=== PATIENT | male | born 1970 | race Asian ===

== ENCOUNTER 2024-06-12 16:37 | Inpatient (IN) | payer MEDICARE, OTHER ==
[~2024-06-12] VITALS: Ht 180.3 cm; Wt 73.5 kg
[2024-06-12 16:59] LABS: BASOPHILS % (AUTO) 0.3 % (0.0-2.0); EOSINOPHILS # (AUTO) 0.1 K/uL (0.0-0.7); EOSINOPHILS % (AUTO) 1.9 % (0.0-6.0); HEMATOCRIT 41 % (39-51); HEMOGLOBIN 13.5 g/dL (13.5-17.5); LYMPHOCYTES % (AUTO) 34.7 % (20.0-44.0); MEAN CORPUSCULAR HEMOGLOBIN 29 PG (26.0-33.0); MEAN CORPUSCULAR HGB CONC 33 g/dl (31.0-36.0); MEAN CORPUSCULAR VOLUME 88 fL (80-96); MONOCYTES # (AUTO) 0.7 K/uL (0.1-1.30); MONOCYTES % (AUTO) 12.8 % (2.0-12.0); NEUTROPHILS # (AUTO) 2.9 K/uL (1.8-8.9); NEUTROPHILS % (AUTO) 50.3 % (43.0-81.0); PLATELET COUNT (AUTO) 247 K/uL (150-450); RED BLOOD CELL COUNT(AUTO) 4.72 MIL/uL (4.5-6.0); RED CELL DISTRIBUTION WIDTH 16.5 % (11.5-15.0); WHITE BLOOD COUNT (AUTO) 5.8 K/uL (4.3-11.0)
[2024-06-12] MEDS: IV NS 0.9% 1,000 ML BAG IV ONE (17:02)
[2024-06-12 17:10] LABS: CALCIUM, SERUM 8.9 mg/dL (8.5-10.1); CARBON DIOXIDE 21 mmol/L (21-32); CHLORIDE 99 mmol/L (98-107); CREATININE 1.2 mg/dL (0.6-1.3); GLUCOSE 90 mg/dL (74-106); POTASSIUM 4.3 mmol/L (3.5-5.1); SODIUM SERUM 136 mmol/L (136-145); UREA NITROGEN, BLOOD 8 mg/dL (7-18)
[2024-06-12 17:18] LABS: ALANINE AMINOTRANSFERASE 23 U/L (12-78); ALCOHOL, BLOOD < 3 mg/dL (0-10); ALKALINE PHOSPHATASE 52 U/L (46-116); ASPARTATE AMINOTRANSFERASE 22 U/L (15-37); BILIRUBIN,DIRECT 0.2 mg/dL (0.0-0.2); BILIRUBIN,TOTAL 0.5 mg/dL (0.2-1.0); TOTAL PROTEIN, SERUM 7.3 g/dL (6.4-8.2)
[2024-06-12] MEDS ORDERED: PANT40TA49 PO (17:55)
[2024-06-12] MEDS ORDERED: EVOL140P3 PO (17:55)
[2024-06-12] MEDS ORDERED: KRIL1CAP18 PO (17:55)
[2024-06-12] MEDS ORDERED: CLOP75TA15 PO (17:55)
[2024-06-12] MEDS ORDERED: FERR325T24 PO (17:55)
[2024-06-12] MEDS ORDERED: CARV6.252 PO (17:55)
[2024-06-12] MEDS ORDERED: DIVA250T4 PO (17:55)
[2024-06-12] MEDS ORDERED: EZET10TA32 PO (17:55)
[2024-06-12] MEDS ORDERED: ATOR80TA PO (17:55)
[2024-06-12] MEDS ORDERED: PALI234D IM (17:55)
[2024-06-12] MEDS ORDERED: TRAZ-252 PO (17:55)
[2024-06-12] MEDS ORDERED: CHOL500062 PO (17:55)
[2024-06-12] MEDS ORDERED: ACETAMINOPHEN 325 MG TABLET PO PRN (18:00)
[2024-06-12] MEDS ORDERED: ONDANSETRON HCL/PF 4 MG/2 ML VIAL IVP PRN (18:00)
[2024-06-12] MEDS ORDERED: MORPHINE SULFATE INJ 2 MG/ML DISP.SYRIN IV PRN (18:00)
[2024-06-12] MEDS ORDERED: TRAZODONE 50 MG TABLET PO PRN (18:00)
[2024-06-12] MEDS ORDERED: hydrALAZINE HCL IV 20 MG VIAL IV PRN (18:00)
[2024-06-12 18:46] LABS: CALCIUM, SERUM 8.9 mg/dL (8.5-10.1)
[2024-06-12] MEDS ORDERED: DIVALPROEX SODIUM 250 MG TABLET.DR PO SCH (21:00)
[2024-06-12] MEDS ORDERED: DIVALPROEX SODIUM 500 MG TABLET.DR PO ONE (22:48)
[2024-06-12] MEDS ORDERED: HEPARIN SODIUM, PORCINE 5000 UNITS/1 ML VIAL ONE (22:48)
[2024-06-12] MEDS ORDERED: ATORVASTATIN 40 MG TABLET ONE (22:49)
[2024-06-12] MEDS ORDERED: CARVEDILOL 6.25 MG TABLET ONE (22:49)
[2024-06-12] MEDS: CARVEDILOL 6.25 MG TABLET PO SCH (22:56)
[2024-06-12] MEDS: DIVALPROEX SODIUM 250 MG TABLET.DR PO SCH (22:57)
[2024-06-12] MEDS: HEPARIN SODIUM, PORCINE 5000 UNITS/1 ML VIAL SQ SCH (22:57)
[2024-06-12] MEDS: ATORVASTATIN 40 MG TABLET PO SCH (22:57)
[2024-06-13 00:50] VITALS: BP 115/65; TEMP 98.1; O2SAT 98
[2024-06-13 04:00] VITALS: BP 110/65; TEMP 98.5; O2SAT 99
[2024-06-13 07:57] LABS: BASOPHILS % (AUTO) 0.4 % (0.0-2.0); EOSINOPHILS # (AUTO) 0.1 K/uL (0.0-0.7); HEMATOCRIT 39 % (39-51); HEMOGLOBIN 13.2 g/dL (13.5-17.5); LYMPHOCYTES # (AUTO) 2.1 K/uL (0.8-4.8); LYMPHOCYTES % (AUTO) 41.5 % (20.0-44.0); MEAN CORPUSCULAR HEMOGLOBIN 29 PG (26.0-33.0); MEAN CORPUSCULAR HGB CONC 34 g/dl (31.0-36.0); MEAN CORPUSCULAR VOLUME 88 fL (80-96); MONOCYTES # (AUTO) 0.6 K/uL (0.1-1.30); NEUTROPHILS # (AUTO) 2.3 K/uL (1.8-8.9); NEUTROPHILS % (AUTO) 45.1 % (43.0-81.0); PLATELET COUNT (AUTO) 253 K/uL (150-450); RED BLOOD CELL COUNT(AUTO) 4.48 MIL/uL (4.5-6.0); RED CELL DISTRIBUTION WIDTH 17.2 % (11.5-15.0); WHITE BLOOD COUNT (AUTO) 5.1 K/uL (4.3-11.0)
[2024-06-13 08:00] VITALS: BP 98/57; TEMP 97.7; O2SAT 98
[2024-06-13 08:08] LABS: CALCIUM, SERUM 8.6 mg/dL (8.5-10.1)
[2024-06-13 08:51] LABS: ALBUMIN 3.2 g/dL (3.4-5.0); BILIRUBIN,TOTAL 0.6 mg/dL (0.2-1.0); CALCIUM, SERUM 8.6 mg/dL (8.5-10.1); CREATININE 0.9 mg/dL (0.6-1.3); MAGNESIUM 2.4 mg/dL (1.8-2.4); PHOSPHORUS 3.8 mg/dL (2.5-4.9); POTASSIUM 3.9 mmol/L (3.5-5.1); TOTAL PROTEIN, SERUM 6.3 g/dL (6.4-8.2)
[2024-06-13] MEDS: PANTOPRAZOLE 40 MG TABLET.DR PO SCH (08:56)
[2024-06-13] MEDS: CLOPIDOGREL BISULFATE 75 MG TABLET PO SCH (09:12)
[2024-06-13] MEDS: FERROUS SULFATE (325 MG) 325 MG/TAB TABLET PO SCH (09:12)
[2024-06-13] MEDS: EZETIMIBE 10 MG TABLET PO SCH (09:13)
[2024-06-13 12:00] VITALS: BP 98/57; TEMP 97.7; O2SAT 98
[2024-06-13 13:09] LABS: THYROID STIMULATING HORMONE 0.56 uIU/mL (0.358-3.74)
[2024-06-13] MEDS ORDERED: DIVA500T2 PO (14:28)
[2024-06-15 11:08] LABS: FOLIC ACID 10.5 ng/mL (>3.0)
[2024-07-12] MEDS ORDERED: PALIPERIDONE PALMITATE 234 MG/1.5 ML SYRINGE IM SCH (09:00)
== END 2024-06-13 15:20 | disposition home or self-care (01) | DRG 100 ==
LOC: ER 16:43 → MEDSG1 06-13 00:17 → TELE1 06-13 01:00 → MEDSG1 06-13 10:22
PROVIDERS: ADMIT Internal Medicine; ATTEND Internal Medicine
DX: G40.909 Epilepsy, unspecified, not intractable, without status epilepticus (principal); G92.8 Other toxic encephalopathy; I25.10 Atherosclerotic heart disease of native coronary artery without angina pectoris; Z98.890 Other specified postprocedural states; I25.2 Old myocardial infarction; Z79.02 Long term (current) use of antithrombotics/antiplatelets; Z79.899 Other long term (current) drug therapy; Z85.118 Personal history of other malignant neoplasm of bronchus and lung; Z85.841 Personal history of malignant neoplasm of brain; E78.5 Hyperlipidemia, unspecified; G93.89 Other specified disorders of brain; I10 Essential (primary) hypertension
CPT/HCPCS: 36415; 70450-TC; 71045-TC; 80048-TC; 80053-TC; 80076-TC; 80164-TC; 82310-TC; 82607-TC; 83735-TC; 83921; 84100-TC; 84425; 84443-TC; 85025-TC; G0378; G0480; J1644; J7030